=== PATIENT | female | born 1950 | race Caucasian/White ===

== ENCOUNTER 2021-12-14 07:14 | Inpatient (IN) | payer MEDICARE, OTHER ==
[~2021-12-14] VITALS: Ht 170.2 cm; Wt 49.9 kg
[2021-12-14] MEDS ORDERED: predniSONE 20 MG TABLET ONE (07:26)
[2021-12-14] MEDS ORDERED: ALBUTEROL FS 2.5 MG/3 ML VIAL.NEB ONE ×2 (07:28)
[2021-12-14] MEDS ORDERED: IPRATROPIUM NEB FS 0.5 MG/2.5 ML AMPUL.NEB ONE (07:29)
[2021-12-14] MEDS ORDERED: IPRATROPIUM NEB FS 0.5 MG/2.5 ML AMPUL.NEB NEB ONE (07:30)
[2021-12-14] MEDS ORDERED: predniSONE 20 MG TABLET PO ONE (07:30)
[2021-12-14] MEDS ORDERED: ALBUTEROL FS 2.5 MG/3 ML VIAL.NEB CONTNEB ONE (07:30)
[2021-12-14 07:43] LABS: BASOPHILS % (AUTO) 0.1 % (0.0-2.0); EOSINOPHILS % (AUTO) 0.4 % (0.0-6.0); HEMATOCRIT 38 % (33-45); HEMOGLOBIN 12.2 g/dL (11.5-14.8); LYMPHOCYTES # (AUTO) 0.6 K/uL (0.8-4.8); LYMPHOCYTES % (AUTO) 3.6 % (20.0-44.0); MEAN CORPUSCULAR HGB CONC 32 g/dl (31.0-36.0); MEAN CORPUSCULAR VOLUME 92 fL (82-100); MONOCYTES # (AUTO) 1.5 K/uL (0.1-1.30); MONOCYTES % (AUTO) 9.5 % (2.0-12.0); NEUTROPHILS # (AUTO) 13.4 K/uL (1.8-8.9); NEUTROPHILS % (AUTO) 86.4 % (43.0-81.0); PLATELET COUNT (AUTO) 382 K/uL (150-450); RED BLOOD CELL COUNT(AUTO) 4.12 MIL/uL (4.0-5.2); WHITE BLOOD COUNT (AUTO) 15.5 K/uL (4.3-11.0)
[2021-12-14] MEDS ORDERED: MELA3TAB41 PO (08:00)
[2021-12-14] MEDS ORDERED: DOCU-141 PO (08:00)
[2021-12-14] MEDS ORDERED: MAGN400O6 PO (08:00)
[2021-12-14] MEDS ORDERED: LEVO25TA7 PO (08:00)
[2021-12-14] MEDS ORDERED: MOME13HF2 IH (08:00)
[2021-12-14] MEDS ORDERED: MORP15TA PO (08:00)
[2021-12-14] MEDS ORDERED: MULT-447 PO (08:00)
[2021-12-14] MEDS ORDERED: REVE175V IH (08:00)
[2021-12-14] MEDS ORDERED: ALBU2.5V38 IH (08:00)
[2021-12-14] MEDS ORDERED: GUAI100S11 PO (08:00)
[2021-12-14] MEDS ORDERED: ALBU8.5H8 IH (08:00)
[2021-12-14] MEDS ORDERED: AMLO-213 PO (08:00)
[2021-12-14] MEDS ORDERED: ARFO15VI IH (08:00)
[2021-12-14 08:23] LABS: ABG BASE EXCESS 9.7 mmol/L; ABG PH 7.357 (7.350-7.450); ABG PO2 63.2 mmHg (75.0-100.0); COHb 0.5 % (0.5-1.5); MetHb 0.4 % (0.0-1.5); O2Hb 91.3 % (94.0-97.0); SITE, ABG Left Radial; VENT MODE, BG 2 L N.C
[2021-12-14] MEDS ORDERED: AZITHROMYCIN 500 MG in IV D5W 250 ML IV ONE (08:30)
[2021-12-14] MEDS ORDERED: CEFTRIAXONE 1GM BAG (ER ONLY) 50 ML IV ONE (08:30)
[2021-12-14] MEDS ORDERED: CEFTRIAXONE 1GM BAG (ER ONLY) 1 GM/50 ML PIGGYBACK IV ONE (08:30)
[2021-12-14 08:59] LABS: CALCIUM, SERUM 9.1 mg/dL (8.5-10.1); CARBON DIOXIDE 37 mmol/L (21-32); CHLORIDE 96 mmol/L (98-107); CREATININE 0.4 mg/dL (0.6-1.3); GLUCOSE 132 mg/dL (74-106); POTASSIUM 4.5 mmol/L (3.5-5.1); SODIUM SERUM 139 mmol/L (136-145); UREA NITROGEN, BLOOD 7 mg/dL (7-18)
[2021-12-14] MEDS ORDERED: MORPHINE SULFATE INJ 2 MG/ML DISP.SYRIN ONE ×2 (08:59→11:36)
[2021-12-14] MEDS ORDERED: MORPHINE SULFATE INJ 2 MG/ML DISP.SYRIN IV ONE (09:00)
[2021-12-14 09:09] LABS: ALANINE AMINOTRANSFERASE 13 U/L (12-78); ALBUMIN 2.6 g/dL (3.4-5.0); ALKALINE PHOSPHATASE 76 U/L (46-116); ASPARTATE AMINOTRANSFERASE 16 U/L (15-37); BILIRUBIN,DIRECT 0.1 mg/dL (0.0-0.2); BILIRUBIN,TOTAL 0.3 mg/dL (0.2-1.0); TOTAL PROTEIN, SERUM 8.4 g/dL (6.4-8.2)
[2021-12-14] MEDS ORDERED: MORPHINE SULFATE INJ 2 MG/ML DISP.SYRIN IV PRN (11:30)
[2021-12-14 18:00] VITALS: BP 126/69
[2021-12-14] MEDS ORDERED: ENOXAPARIN SODIUM 40 MG/0.4 ML DISP.SYRIN SQ SCH (19:00)
[2021-12-14] MEDS ORDERED: ACETAMINOPHEN 325 MG TABLET PO PRN (19:00)
[2021-12-14] MEDS ORDERED: ONDANSETRON HCL/PF 4 MG/2 ML VIAL IVP PRN (19:00)
[2021-12-14] MEDS ORDERED: MAG HYDROX/AL HYDROX/SIMETH 30 ML UDC PO PRN (19:00)
[2021-12-14] MEDS ORDERED: Z GUARD REMEDY 4 OZ OINT TP PRN (19:00)
[2021-12-14 20:00] VITALS: BP 146/77
[2021-12-14] MEDS ORDERED: DOCUSATE SODIUM 100 MG CAPSULE PO PRN (20:00)
[2021-12-14] MEDS ORDERED: ALBUTEROL SULFATE 8 GM HFA.AER.AD IH PRN (20:00)
[2021-12-14] MEDS ORDERED: MAGNESIUM HYDROXIDE 30 ML UDC PO PRN ×2 (20:00→22:00)
[2021-12-14] MEDS ORDERED: ALBUTEROL FS 2.5 MG/3 ML VIAL.NEB IH PRN (20:00)
[2021-12-14] MEDS ORDERED: ARFORMOTEROL TARTRATE 15 MCG XX SCH (21:00)
[2021-12-14] MEDS ORDERED: MELATONIN 3 MG TABLET PO PRN (21:30)
[2021-12-14] MEDS: MORPHINE SULFATE IR 15 MG TABLET PO PRN (22:00)
[2021-12-14] MEDS ORDERED: ZOLPIDEM TARTRATE 5 MG TABLET PO PRN (22:00)
[2021-12-14] MEDS: methylPREDNISolone SOD SUCC 125 MG/2ML VIAL IV SCH (22:00)
[2021-12-14] MEDS: IPRATROPIUM NEB FS 0.5 MG/2.5 ML AMPUL.NEB NEB SCH (23:36)
[2021-12-14] MEDS: ALBUTEROL FS 2.5 MG/3 ML VIAL.NEB NEB SCH (23:36)
[2021-12-15] VITALS (30 sets, daily range): BP systolic 83–186; BP diastolic 42–90
[2021-12-15] MEDS: ALBUTEROL FS 2.5 MG/3 ML VIAL.NEB NEB SCH ×6 (03:30→23:30)
[2021-12-15] MEDS: IPRATROPIUM NEB FS 0.5 MG/2.5 ML AMPUL.NEB NEB SCH ×6 (03:30→23:30)
[2021-12-15] MEDS: methylPREDNISolone SOD SUCC 125 MG/2ML VIAL IV SCH ×3 (04:23→21:27)
[2021-12-15 06:58] LABS: HEMATOCRIT 35 % (33-45); HEMOGLOBIN 11.4 g/dL (11.5-14.8); LYMPHOCYTES # (AUTO) 0.3 K/uL (0.8-4.8); LYMPHOCYTES % (AUTO) 2.3 % (20.0-44.0); MEAN CORPUSCULAR HGB CONC 33 g/dl (31.0-36.0); MEAN CORPUSCULAR VOLUME 91 fL (82-100); MONOCYTES # (AUTO) 0.2 K/uL (0.1-1.30); MONOCYTES % (AUTO) 1.5 % (2.0-12.0); NEUTROPHILS % (AUTO) 96.2 % (43.0-81.0); PLATELET COUNT (AUTO) 387 K/uL (150-450); RED BLOOD CELL COUNT(AUTO) 3.77 MIL/uL (4.0-5.2); WHITE BLOOD COUNT (AUTO) 13.5 K/uL (4.3-11.0)
[2021-12-15 07:15] LABS: CALCIUM, SERUM 9.4 mg/dL (8.5-10.1); CARBON DIOXIDE 37 mmol/L (21-32); CHLORIDE 97 mmol/L (98-107); CREATININE 0.5 mg/dL (0.6-1.3); GLUCOSE 163 mg/dL (74-106); MAGNESIUM 2.3 mg/dL (1.8-2.4); PHOSPHORUS 3.4 mg/dL (2.5-4.9); POTASSIUM 4.7 mmol/L (3.5-5.1); SODIUM SERUM 139 mmol/L (136-145); UREA NITROGEN, BLOOD 16 mg/dL (7-18)
[2021-12-15] MEDS ORDERED: ALBUTEROL FS 2.5 MG/3 ML VIAL.NEB NEB PRN (07:57)
[2021-12-15] MEDS ORDERED: AMIODARONE 450 MG in IV D5W 250 ML IV PRN (09:00)
[2021-12-15] MEDS ORDERED: REVEFENACIN 175 MCG IH SCH (09:00)
[2021-12-15] MEDS ORDERED: AMIODARONE 150 MG in IV D5W 100 ML IV ONE (09:00)
[2021-12-15] MEDS: AMLODIPINE BESYLATE 10 MG TABLET PO SCH (09:04)
[2021-12-15] MEDS: MULTIVITAMINS,THERAGRAN 1 UDTAB TABLET PO SCH (09:04)
[2021-12-15] MEDS: PANTOPRAZOLE 40 MG TABLET.DR PO SCH (09:04)
[2021-12-15] MEDS: LEVOTHYROXINE SODIUM 25 MCG TABLET PO SCH (09:04)
[2021-12-15] MEDS: MORPHINE SULFATE IR 15 MG TABLET PO PRN ×2 (09:05→13:22)
[2021-12-15] MEDS: CEFTRIAXONE 1 G in IV D5W 50 ML IV SCH (09:05)
[2021-12-15] MEDS: AZITHROMYCIN 500 MG in IV D5W 250 ML IV SCH (09:59)
[2021-12-15 10:08] LABS: THYROID STIMULATING HORMONE 0.644 uIU/mL (0.358-3.74)
[2021-12-15] MEDS: AMIODARONE 450 MG in IV D5W 250 ML IV PRN ×2 (10:42→16:42)
[2021-12-15] MEDS ORDERED: ALPRAZOLAM 0.25 MG TABLET PO PRN (13:30)
[2021-12-15 13:36] LABS: ABG BASE EXCESS 9.5 mmol/L; ABG OXYGEN SATURATION 92.7 % (92.0-98.5); ABG PCO2 63.8 mmHg (35.0-45.0); ABG PH 7.381 (7.350-7.450); ABG PO2 64.2 mmHg (75.0-100.0); AaDO2 60.2 mmHg; COHb 0.7 % (0.5-1.5); MetHb 0.2 % (0.0-1.5); O2Hb 91.9 % (94.0-97.0); SITE, ABG Left Radial; VENT MODE, BG NASAL CANNULA
[2021-12-15] MEDS ORDERED: ENSURE ENLIVE 237 ML LIQUID (VANILLA) PO SCH (17:00)
[2021-12-15] MEDS: GUAIFENESIN 300 MG/15 ML UDC PO PRN (17:05)
[2021-12-15] MEDS: ENSURE CLEAR 237 ML LIQUID (MIX BERRY) PO SCH (17:32)
[2021-12-16] VITALS (15 sets, daily range): BP systolic 89–140; BP diastolic 46–79
[2021-12-16] MEDS: ALBUTEROL FS 2.5 MG/3 ML VIAL.NEB NEB SCH ×3 (03:18→11:30)
[2021-12-16] MEDS: IPRATROPIUM NEB FS 0.5 MG/2.5 ML AMPUL.NEB NEB SCH ×3 (03:18→11:30)
[2021-12-16 04:38] LABS: HEMATOCRIT 37 % (33-45); HEMOGLOBIN 12.1 g/dL (11.5-14.8); LYMPHOCYTES # (AUTO) 0.6 K/uL (0.8-4.8); LYMPHOCYTES % (AUTO) 2.8 % (20.0-44.0); MEAN CORPUSCULAR HGB CONC 32 g/dl (31.0-36.0); MEAN CORPUSCULAR VOLUME 91 fL (82-100); MONOCYTES # (AUTO) 0.5 K/uL (0.1-1.30); MONOCYTES % (AUTO) 2.4 % (2.0-12.0); NEUTROPHILS # (AUTO) 20.1 K/uL (1.8-8.9); NEUTROPHILS % (AUTO) 94.8 % (43.0-81.0); PLATELET COUNT (AUTO) 411 K/uL (150-450); WHITE BLOOD COUNT (AUTO) 21.2 K/uL (4.3-11.0)
[2021-12-16] MEDS: methylPREDNISolone SOD SUCC 125 MG/2ML VIAL IV SCH ×2 (04:39→12:28)
[2021-12-16] MEDS: GUAIFENESIN 300 MG/15 ML UDC PO PRN (05:04)
[2021-12-16 05:11] LABS: ALBUMIN 2.6 g/dL (3.4-5.0); BILIRUBIN,TOTAL 0.2 mg/dL (0.2-1.0); CALCIUM, SERUM 9.3 mg/dL (8.5-10.1); CREATININE 0.6 mg/dL (0.6-1.3); MAGNESIUM 2.4 mg/dL (1.8-2.4); PHOSPHORUS 3.1 mg/dL (2.5-4.9); POTASSIUM 4.8 mmol/L (3.5-5.1); TOTAL PROTEIN, SERUM 7.9 g/dL (6.4-8.2)
[2021-12-16] MEDS: PANTOPRAZOLE 40 MG TABLET.DR PO SCH ×2 (07:30→08:03)
[2021-12-16] MEDS: LEVOTHYROXINE SODIUM 25 MCG TABLET PO SCH (08:03)
[2021-12-16] MEDS: MULTIVITAMINS,THERAGRAN 1 UDTAB TABLET PO SCH (08:03)
[2021-12-16] MEDS: AMLODIPINE BESYLATE 10 MG TABLET PO SCH ×2 (08:03→09:00)
[2021-12-16] MEDS: CEFTRIAXONE 1 G in IV D5W 50 ML IV SCH (08:06)
[2021-12-16] MEDS: ENSURE CLEAR 237 ML LIQUID (MIX BERRY) PO SCH ×2 (08:06→12:00)
[2021-12-16] MEDS: DRONEDARONE HYDROCHLORIDE 400 MG TABLET PO SCH ×2 (08:07→09:00)
[2021-12-16] MEDS: AZITHROMYCIN 500 MG in IV D5W 250 ML IV SCH (08:44)
[2021-12-16] MEDS ORDERED: LEVO500T90 PO (12:40)
[2021-12-16] MEDS ORDERED: DRON400T6 PO (12:40)
[2021-12-16] MEDS ORDERED: PRED20TA PO (12:40)
[2021-12-16 13:06] LABS: *SPE A/G RATIO 0.7 (0.7-1.7); *SPE ALPHA-1-GLOBULIN 0.5 g/dL (0.0-0.4); *SPE ALPHA-2-GLOBULIN 1.2 g/dL (0.4-1.0); *SPE BETA GLOBULIN 1.2 g/dL (0.7-1.3); *SPE M-SPIKE Not Observed g/dL (Not Observed)
== END 2021-12-16 15:48 | disposition hospice, inpatient (51) | DRG 871 ==
LOC: ER 07:14 → TRANSITION 10:54 → TELE 15:05 → ICU 12-15 08:26
PROVIDERS: ADMIT Student in an Organized Health Care Education/Training Program
PROC: 05HA33Z Insertion of Infusion Device into Left Brachial Vein, Percutaneous Approach (ICD-10-PCS; principal; 2021-12-15)
DX: A41.9 Sepsis, unspecified organism (principal); J96.01 Acute respiratory failure with hypoxia; J96.02 Acute respiratory failure with hypercapnia; J15.9 Unspecified bacterial pneumonia; E44.0 Moderate protein-calorie malnutrition; J44.0 Chronic obstructive pulmonary disease with (acute) lower respiratory infection; J44.1 Chronic obstructive pulmonary disease with (acute) exacerbation; J90 Pleural effusion, not elsewhere classified; I47.1 Supraventricular tachycardia; E87.2 Acidosis; Z20.822 Contact with and (suspected) exposure to COVID-19; I10 Essential (primary) hypertension; E03.9 Hypothyroidism, unspecified; Z79.51 Long term (current) use of inhaled steroids; Z79.899 Other long term (current) drug therapy; Z51.5 Encounter for palliative care; Z66 Do not resuscitate; Z87.891 Personal history of nicotine dependence; I48.91 Unspecified atrial fibrillation
CPT/HCPCS: 36415; 36600; 71045-TC; 80048-TC; 80053-TC; 80061-TC; 80076-TC; 82728-TC; 82803-TC; 83540-TC; 83605-TC; 83735-TC; 83880; 84100-TC; 84155; 84165; 84439-TC; 84443-TC; 84484-TC; 85025-TC; 87040-TC; 87081-TC; 93307-TC; 94799-TC; C9803; G0378; J0282; J0456; J0696; J1650; J2270; J2930; J7050; J7060